=== PATIENT | male | born 1940 | race Caucasian/White ===

== ENCOUNTER 2023-12-25 21:56 | Emergency (ER) | payer MEDICARE, OTHER, SELFPAY ==
[2023-12-25 21:57] VITALS: BP 148/100
[2023-12-26 00:03] VITALS: BP 139/73
[2023-12-26 00:05] VITALS: BMI 26.2
--- NOTE | 2023-12-26 00:44 | ED.GENMED ---
History of Present Illness
General
Chief Complaint: Back Pain
Source: patient
Exam Limitations: none
Time Seen by Provider: 12/26/23 00:04
History of Present Illness
History of Present Illness:
This is a 83 year old male that comes in with c/o low left sided back pain. States that he started with a little discomfort yesterday. Then today they had dinner and he couldn't get up. States that every time he tried it was like he was being
stabbed in the back with movement. States that he had fallen a month ago but not recently. States that he had chills tonight and was nauseated. Denies any fever, chest pain, SOB, abd pain, vomiting, diarrhea, headache, dizziness, urinary burning.
Past History
Past History
ED Past Medical History: Arrthythmia (Atrial fib), Cancer (Skin CA) and Other (Sleep apnea, Back pain, )
ED Past Surgical History: Cardiac (Pacemaker) and Urological (Urinary sphincter surgery)
Social History
Tobacco: Former smoker
Alcohol: Occasional
Personal:
Living: with family
Review of Systems
Review of Systems
All Other Systems: ROS reviewed and negative except as documented in HPI and ROS
Constitutional: Reports chills; Denies fever
EENT: Reports no symptoms
Respiratory: Reports no symptoms; Denies cough or trouble breathing
Cardiac: Reports no symptoms; Denies chest pain
ABD/GI: Reports nausea; Denies abdominal pain, vomiting or diarrhea
: Reports no symptoms; Denies dysuria, frequency or urgency
Musculoskeletal: Reports back pain (Left sided low back pain)
Skin: Reports no symptoms
Neurological: Reports no symptoms; Denies dizzy or headache
Psychiatric: Reports no symptoms
Phy Exam
General Physical Exam
General Presentation: no apparent distress
General age: appears stated age
General Skin: warm and dry
General Habitus: elderly
General Mental: alert
General Hydration: appears well hydrated
ENT Exam
ENT Exam: TM's normal, pharynx normal and neck supple
Eye Exam
Eye Exam: EOMI
Cardiovascular Exam
Cardiovascular Exam: regular rate/rhythm, no edema and normal peripheral pulses
Pulmonary Exam
Pulmonary Exam: lungs clear, no respiratory distress, no rales, chest non tender, no crackles, no rhonchi, no wheezing and no cough
Gastrointestinal Exam
Gastrointestinal Exam: normal bowel sounds, non tender, soft, no organomegaly, no pulsatile mass and non distended
Musculoskeletal Exam
Musculoskeletal Exam: full ROM and back pain (Tenderness left lateral to the spine with palpation)
Skin Exam
Skin Exam: normal color, warm/dry, no rash and no petechia
Psychiatric Exam
Psychiatric Exam: normal mood/affect
Course
Orders/Labs/Results
Orders:
Orders
12/26/23 00:42
Acetaminophen [Tylenol] 1,000 mg PO NOW STA
Ketorolac [Toradol] 60 mg IM NOW STA
Lumbar Spine Complete, 4 View [CR Lumbar Spine Comp Min 4 Vw*] Urgent
Comment:
Reason For Exam: left sided low back pain
12/26/23 02:53
Urinalysis Reflex To Culture Urgent
Date Specimen was Collected: 12/26/23
Time Specimen was Collected: 02:51
Urine negative for infection.
Vital Signs
Initial and Last Documented VS:
Initial Vital Signs
Temp Pulse Resp BP Pulse Ox
97.6 F 95 16 148/100 96
12/25/23 21:57 12/25/23 21:57 12/25/23 21:57 12/25/23 21:57 12/25/23 21:57
Last Documented Vital Signs
Temp Pulse Resp BP Pulse Ox
97.4 F 74 18 132/87 95
12/26/23 02:42 12/26/23 03:00 12/26/23 02:11 12/26/23 03:00 12/26/23 03:03
MDM/Problems Addressed
Differential Diagnosis Includes:
UTI. Musculoskeletal pain
MDM/Problems Addressed:
This is a 83 year old male that comes in with c/o Left sided low back pain. States that this started yesterday and that tonight he was unable to get up after dinner. states that he had chills.
Will get X-ray, Urine and medicate for pain.
Back into see patient. Patient is sleeping soundly. Awakened easily. Will get patient OOB to make sure he can ambulate. Will have patient alternate with Tylenol 1000mg every 6 hours and Ibuprofen 600mg every 6 hours with food for pain. Patient to
rest, Heat or ice to the low back. follow up with the family doctor. Return with any concerns.
Chronic conditions affecting care:
Back pain,
Acute Exacerbation and/or Progression of Chronic Illness:
Back pain
*Radiology
Radiology exam reviewed: radiology read reviewed (Lumbar spine- Negative for fracture. degenerative changes. )
*Pulse Oximetry
Patient hypoxic: no
*EKG
Interpreted by ED Provider?: NA
Rate: EKG- N/A
*Hot Plate Press Operator Interpretation
Rate: Hot Plate Press Operator- N/A
*Critical Care Note
Total Time (30-74mins, 75-104mins- exclusive of procedures): Not Applicable
ED Attending Note
-
Portions of this chart may have been created with voice recognition software.� Occasional wrong word or��sound alike� substitutions may have occurred due to the inherent limitations of voice recognition software.
Discharge Plan
Departure
Patient Disposition: Home (Routine Discharge)
Date of Disposition: 12/26/23
Time of Disposition: 03:45
Patient with high blood pressure during this ER visit?: Yes
Condition: Good
Covid-19: Not Applicable
Discharge Problem:
Low back pain
Instructions: Low Back Pain (DC), BLOOD PRESSURE
Prescriptions:
No Action
aspirin 325 mg Tablet
325 mg PO DAILY
sotalol 80 mg Tablet
40 mg PO BID
therapeutic multivitamin Tablet
1 tab PO DAILY
fenofibrate nanocrystallized 145 mg Tablet
145 mg PO DAILY
Gemtesa 75 mg tablet
75 mg PO DAILY
Referrals:
Joe Hernadez, [Family Provider] - Follow up in 2-3 days
Activity Restrictions/Additional Instructions:
As discussed, your X-ray is negative for any fractures but there is degenerative changes. You have been medication for pain and have been able to get up and walk. Your urine is negative for infection. Please follow up with the family doctor for
recheck. You may take Tylenol 1000mg every 6 hours for pain and alternate if needed with Ibuprofen 600mg every 6 hours with food for pain. Follow up with the family doctor for further evaluation. IF YOU HAVE ANY OTHER CONCERNS PLEASE RETURN TO THE
EMERGENCY ROOM.
Interventions
Interventions:
*Risk Screen - Suicide Last Done: 12/25/23 21:57
*General Assessment Last Done: 12/25/23 21:57
*Neglect/Abuse Screening Last Done: 12/25/23 21:57
*ED COVID-19 Vaccine History Last Done: 12/26/23 03:07
RJ-Jnfalp-Chsohagqhy Assessment Last Done: 12/26/23 00:05
ED-Musculoskeletal Assessment Last Done: 12/26/23 03:59
Discharge Date and Time
Print Language: ESTONIAN
[2023-12-26] MEDS: TORADOL 60 MG IM (00:53)
[2023-12-26] MEDS: TYLENOL 1000 MG PO (00:53)
[2023-12-26 01:00] VITALS: BP 145/80
[2023-12-26 03:00] VITALS: BP 132/87
[2023-12-26 03:29] LABS: Urine Albumin Negative (Neg - Trace); Urine Bilirubin Negative (Negative); Urine Character Slightly Cloudy (Clear); Urine Color Yellow; Urine Glucose Negative (Negative); Urine Ketone Negative (Negative); Urine Leukocyte Negative (Negative); Urine Nitrite Negative (Negative); Urine Occult Blood Negative (Negative); Urine Specific Gravity 1.025 (<1.030); Urine Urobilinogen Negative (Neg - 1+)
[2023-12-26 07:41] VITALS: BP 132/85
== END 2023-12-26 08:30 | disposition home or self-care (01) ==
LOC: EMR 21:56
PROVIDERS: Clinical Nurse Specialist Family Health; EMERGENCY PHYSICIAN Emergency Medicine; FAMILY PHYSICIAN Family Medicine Sports Medicine
DX: M54.50 Low back pain, unspecified (principal); R68.83 Chills (without fever); R11.0 Nausea; R03.0 Elevated blood-pressure reading, without diagnosis of hypertension; G47.30 Sleep apnea, unspecified; I48.91 Unspecified atrial fibrillation; Z79.82 Long term (current) use of aspirin; Z85.828 Personal history of other malignant neoplasm of skin; Z95.0 Presence of cardiac pacemaker; Z87.891 Personal history of nicotine dependence
CPT/HCPCS: 99284; 96372; 72110; 81003